=== PATIENT | male | born 1950 | race Caucasian/White ===

== ENCOUNTER 2017-10-10 19:22 | Emergency (ER) | payer MEDICARE, OTHER ==
[2017-10-10] MEDS ORDERED: DOCU-141 PO (21:23)
[2017-10-10] MEDS ORDERED: FINA5TAB11 PO (21:23)
[2017-10-10] MEDS ORDERED: CALC430T PO (21:23)
[2017-10-10] MEDS ORDERED: OMEP20CA10 PO (21:23)
[2017-10-10] MEDS ORDERED: OLAN2.5T3 PO (21:23)
[2017-10-10] MEDS ORDERED: NICO-677 TD (21:23)
[2017-10-10] MEDS ORDERED: OXYB10TA PO (21:23)
[2017-10-10] MEDS ORDERED: CLON0.5T12 PO (21:23)
[2017-10-10] MEDS ORDERED: GABA-532 PO (21:23)
[2017-10-10] MEDS ORDERED: TAMS0.4C34 PO (21:23)
== END 2017-10-10 20:00 | disposition home or self-care (01) ==
LOC: CANPREER → ER 19:22
DX: Z53.20 Procedure and treatment not carried out because of patient's decision for unspecified reasons (principal)

== ENCOUNTER 2017-10-10 20:02 | Inpatient (IN) | payer MEDICARE, OTHER ==
[~2017-10-10] VITALS: Ht 167.6 cm; Wt 49.9 kg
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
[2017-10-10] MEDS ORDERED: DOCU-141 PO (21:23)
[2017-10-10] MEDS ORDERED: CALC430T PO (21:23)
[2017-10-10] MEDS ORDERED: TAMS0.4C34 PO (21:23)
[2017-10-10] MEDS ORDERED: FINA5TAB11 PO (21:23)
[2017-10-10] MEDS ORDERED: OLAN2.5T3 PO (21:23)
[2017-10-10] MEDS ORDERED: OMEP20CA10 PO (21:23)
[2017-10-10] MEDS ORDERED: NICO-677 TD (21:23)
[2017-10-10] MEDS ORDERED: CLON0.5T12 PO (21:23)
[2017-10-10] MEDS ORDERED: OXYB10TA PO (21:23)
[2017-10-10] MEDS ORDERED: GABA-532 PO (21:23)
[2017-10-10] MEDS ORDERED: MAG HYDROX/AL HYDROX/SIMETH 30 ML UDC PO PRN (21:30)
[2017-10-10] MEDS ORDERED: MAGNESIUM HYDROXIDE 30 ML UDC PO PRN (21:30)
[2017-10-10 23:28] VITALS: BP 152/97
[2017-10-10] MEDS: LORAZEPAM 0.5 MG TABLET PO PRN (23:29)
[2017-10-11] MEDS: TEMAZEPAM 7.5 MG CAPSULE PO PRN (01:10)
[2017-10-11] MEDS ORDERED: Z GUARD REMEDY 4 OZ OINT TP PRN (03:30)
[2017-10-11 07:40] LABS: ALBUMIN 3.1 g/dL (3.4-5.0); BILIRUBIN,TOTAL 0.3 mg/dL (0.2-1.0); CALCIUM, SERUM 8.5 mg/dL (8.5-10.1); CREATININE 1.1 mg/dL (0.6-1.3); POTASSIUM 3.5 mmol/L (3.5-5.1); TOTAL PROTEIN, SERUM 7.4 g/dL (6.4-8.2)
[2017-10-11 08:00] VITALS: BP 114/69
[2017-10-11 08:11] LABS: CHOLESTEROL 153 mg/dL (<200); HDL CHOLESTEROL 52 mg/dL (40-60); LDL 83 mg/dL (0-99); TRIGLYCERIDES 118 mg/dL (30-150)
[2017-10-11] MEDS: TAMSULOSIN 0.4 MG CAP.SR.24H PO SCH (08:23)
[2017-10-11] MEDS: FINASTERIDE (5 MG) 5 MG TABLET PO SCH (08:23)
[2017-10-11] MEDS: OXYBUTYNIN CHLORIDE ER 5 MG TAB PO SCH (08:23)
[2017-10-11] MEDS: PANTOPRAZOLE 40 MG TABLET.DR PO SCH (08:24)
[2017-10-11] MEDS: NICOTINE PATCH (21MG) 21 MG PATCH.TD24 TD SCH (08:26)
[2017-10-11] MEDS: LORAZEPAM 0.5 MG TABLET PO PRN ×2 (08:29→14:19)
--- NOTE | 2017-10-11 08:30 | NUR ---
GPS/RN PATIENT IS NOTED TO ANXIOUS AND CRYING INTERMITTENTLY, ADMINISTERED ATIVAN 0.5 MG , WILL CONTINUE TO MONITOR.
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
[2017-10-11] MEDS: CALCIUM CARBONATE 500 MG TAB.CHEW PO SCH ×2 (12:42→16:26)
[2017-10-11] MEDS: CLOTRIMAZOLE/BETAMETASONE DIPROPIONATE 15 GM TUBE TP SCH ×2 (12:43→16:46)
--- NOTE | 2017-10-11 14:22 | NUR ---
GPS/RN PATIENT IS ANXIOUS, RESTLESS AND CRYING INTERMITTENTLY, ADMINISTERED ATIVAN 0.5 MG , WILL CONTINUE TO MONITOR.
[2017-10-11 15:47] VITALS: BP 146/95
[2017-10-11] MEDS: GABAPENTIN 100 MG CAPSULE PO SCH (16:27)
[2017-10-11] MEDS: NEOMY SULF/BACITRAC ZN/POLY 15 GM TUBE TP SCH (16:45)
[2017-10-11 20:55] VITALS: BP 101/84
[2017-10-11] MEDS: OLANZAPINE 2.5 MG TABLET PO SCH (21:27)
[2017-10-11] MEDS: ACETAMINOPHEN 325 MG TABLET PO PRN (21:27)
[2017-10-12 08:00] VITALS: BP 150/78
[2017-10-12] MEDS ORDERED: DOCUSATE SODIUM 100 MG CAPSULE PO SCH (09:00)
[2017-10-12] MEDS: CALCIUM CARBONATE 500 MG TAB.CHEW PO SCH ×2 (09:10→16:26)
[2017-10-12] MEDS: FINASTERIDE (5 MG) 5 MG TABLET PO SCH (09:10)
[2017-10-12] MEDS: NICOTINE PATCH (21MG) 21 MG PATCH.TD24 TD SCH (09:10)
[2017-10-12] MEDS: PANTOPRAZOLE 40 MG TABLET.DR PO SCH (09:11)
[2017-10-12] MEDS: ESCITALOPRAM OXALATE (10 MG) 10 MG TABLET PO SCH (09:11)
[2017-10-12] MEDS: OXYBUTYNIN CHLORIDE ER 5 MG TAB PO SCH (09:11)
[2017-10-12] MEDS: GABAPENTIN 100 MG CAPSULE PO SCH ×2 (09:11→16:26)
[2017-10-12] MEDS: TAMSULOSIN 0.4 MG CAP.SR.24H PO SCH (09:11)
[2017-10-12] MEDS: NEOMY SULF/BACITRAC ZN/POLY 15 GM TUBE TP SCH (09:42)
[2017-10-12] MEDS: CLOTRIMAZOLE/BETAMETASONE DIPROPIONATE 15 GM TUBE TP SCH ×2 (09:43→16:26)
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
[2017-10-12 16:00] VITALS: BP 116/87
--- NOTE | 2017-10-12 19:30 | NUR ---
GPS RN NOTE, RECEIVED PATIENT AWAKE AND IN BED, NO S/S OR COMPLAINTS OF PAIN AT THIS TIME. PATIENT IS DISPLAYING NO S/S OF APPARENT DISTRESS AT THIS TIME. PATIENT BREATHING IS UNLABORED WITH EQUAL RISE AND FALL OF THE CHEST. PATIENT IS ALERT AND ORIENTED X 1-2 ON ROOM AIR WITH A SPO2 OF 96%. PATIENT IS COMPLIANT WITH MEDICATION, ANXIOUS AT TIMES, PARANOID, COOPERATIVE, AND NEEDS REORIENTATION. PATIENT DENIES SUICIDE IDEATIONS AND HOMICIDAL IDEATIONS AT THIS TIME. PATIENT ASSISTED WITH TURNING AND REPOSITIONING Q2HR AND PRN FOR COMFORT AND CIRCULATION. PATIENT HAS NO NEEDS AT THIS TIME. PATIENT EDUCATED ON THE USE OF THE CALL PATRICIA. PATIENT SIDE RAILS ARE UP X 2, BED IS LOCKED AND LOW, AND I WILL CONTINUE TO MONITOR THIS PATIENT Q 15 MIN WITH THE HELP OF STAFF.
[2017-10-12] MEDS: LORAZEPAM 0.5 MG TABLET PO PRN (19:36)
--- NOTE | 2017-10-12 19:36 | NUR ---
GPS RN NOTE, PATIENT HAS A COMPLAINT OF FEELING ANXIOUS AND IS REQUESTING ATIVAN AT THIS TIME. PATIENT VITAL SIGNS ARE STABLE. GAVE ATIVAN 0.5MG PO Q6HR PRN ORDERED. WILL REASSESS FOR ANXIETY AND I WILL CONTINUE TO MONITOR THIS PATIENT.
[2017-10-12 20:17] VITALS: BP 135/84
[2017-10-12] MEDS: OLANZAPINE 2.5 MG TABLET PO SCH (21:41)
[2017-10-12] MEDS: ACETAMINOPHEN 325 MG TABLET PO PRN (22:46)
--- NOTE | 2017-10-12 22:46 | NUR ---
GPS RN NOTE, PATIENT HAS A COMPLAINT OF A HEAD ACHE AT 3 OUT 10 ON THE PAIN SCALE AND IS REQUESTING TYLENOL AT THIS TIME. PATIENT VITAL SIGNS ARE STABLE. GAVE TYLENOL 650MG PO Q6 PRN ORDERED. WILL REASSESS FOR PAIN AND I WILL CONTINUE TO MONITOR THIS PATIENT.
[2017-10-13 08:00] VITALS: BP 107/58
[2017-10-13] MEDS: ESCITALOPRAM OXALATE (10 MG) 10 MG TABLET PO SCH (08:29)
[2017-10-13] MEDS: PANTOPRAZOLE 40 MG TABLET.DR PO SCH (08:29)
[2017-10-13] MEDS: OXYBUTYNIN CHLORIDE ER 5 MG TAB PO SCH (08:29)
[2017-10-13] MEDS: TAMSULOSIN 0.4 MG CAP.SR.24H PO SCH (08:29)
[2017-10-13] MEDS: GABAPENTIN 100 MG CAPSULE PO SCH ×2 (08:29→16:53)
[2017-10-13] MEDS: CALCIUM CARBONATE 500 MG TAB.CHEW PO SCH ×2 (08:29→16:53)
[2017-10-13] MEDS: DOCUSATE SODIUM 250 MG CAPSULE PO SCH ×2 (08:29→09:00)
[2017-10-13] MEDS: NICOTINE PATCH (21MG) 21 MG PATCH.TD24 TD SCH (08:29)
[2017-10-13] MEDS: FINASTERIDE (5 MG) 5 MG TABLET PO SCH (08:29)
[2017-10-13] MEDS: CLOTRIMAZOLE/BETAMETASONE DIPROPIONATE 15 GM TUBE TP SCH ×3 (09:00→16:55)
[2017-10-13] MEDS: NEOMY SULF/BACITRAC ZN/POLY 15 GM TUBE TP SCH ×2 (09:00→09:46)
[2017-10-13] MEDS: LORAZEPAM 0.5 MG TABLET PO PRN (13:05)
--- NOTE | 2017-10-13 13:05 | NUR ---
Pt. is anxious and tearful and requesting for Ativan po prn given as ordered.
[2017-10-13 15:51] VITALS: BP 101/79
[2017-10-13 20:00] VITALS: BP 104/73
[2017-10-13] MEDS: TEMAZEPAM 7.5 MG CAPSULE PO PRN (22:17)
[2017-10-13] MEDS: OLANZAPINE 2.5 MG TABLET PO SCH (22:17)
[2017-10-14 08:19] VITALS: BP 138/86
[2017-10-14] MEDS: CLOTRIMAZOLE/BETAMETASONE DIPROPIONATE 15 GM TUBE TP SCH ×2 (09:00→16:50)
[2017-10-14] MEDS: NEOMY SULF/BACITRAC ZN/POLY 15 GM TUBE TP SCH (09:00)
[2017-10-14] MEDS: ESCITALOPRAM OXALATE (10 MG) 10 MG TABLET PO SCH (09:57)
[2017-10-14] MEDS: FINASTERIDE (5 MG) 5 MG TABLET PO SCH (09:57)
[2017-10-14] MEDS: NICOTINE PATCH (21MG) 21 MG PATCH.TD24 TD SCH (09:58)
[2017-10-14] MEDS: LORAZEPAM 0.5 MG TABLET PO PRN ×2 (09:58→16:53)
[2017-10-14] MEDS: DOCUSATE SODIUM 250 MG CAPSULE PO SCH (09:58)
[2017-10-14] MEDS: OXYBUTYNIN CHLORIDE ER 5 MG TAB PO SCH (09:58)
[2017-10-14] MEDS: PANTOPRAZOLE 40 MG TABLET.DR PO SCH (09:58)
[2017-10-14] MEDS: GABAPENTIN 100 MG CAPSULE PO SCH ×2 (09:58→16:53)
[2017-10-14] MEDS: CALCIUM CARBONATE 500 MG TAB.CHEW PO SCH ×2 (09:58→16:53)
[2017-10-14] MEDS: TAMSULOSIN 0.4 MG CAP.SR.24H PO SCH (09:59)
[2017-10-14 16:35] VITALS: BP 117/72
[2017-10-14 20:00] VITALS: BP 129/64
[2017-10-14] MEDS: OLANZAPINE 2.5 MG TABLET PO SCH (22:00)
[2017-10-14] MEDS: TEMAZEPAM 7.5 MG CAPSULE PO PRN (22:01)
[2017-10-14] MEDS: ACETAMINOPHEN 325 MG TABLET PO PRN (22:57)
[2017-10-15 08:00] VITALS: BP 147/69
[2017-10-15] MEDS: NICOTINE PATCH (21MG) 21 MG PATCH.TD24 TD SCH (08:22)
[2017-10-15] MEDS: OXYBUTYNIN CHLORIDE ER 5 MG TAB PO SCH (08:22)
[2017-10-15] MEDS: FINASTERIDE (5 MG) 5 MG TABLET PO SCH (08:23)
[2017-10-15] MEDS: CALCIUM CARBONATE 500 MG TAB.CHEW PO SCH ×2 (08:23→17:16)
[2017-10-15] MEDS: TAMSULOSIN 0.4 MG CAP.SR.24H PO SCH (08:23)
[2017-10-15] MEDS: DOCUSATE SODIUM 250 MG CAPSULE PO SCH (08:23)
[2017-10-15] MEDS: GABAPENTIN 100 MG CAPSULE PO SCH ×3 (08:23→17:16)
[2017-10-15] MEDS: PANTOPRAZOLE 40 MG TABLET.DR PO SCH (08:24)
[2017-10-15] MEDS ORDERED: ESCITALOPRAM OXALATE (10 MG) 10 MG TABLET PO SCH (09:00)
[2017-10-15] MEDS: CLOTRIMAZOLE/BETAMETASONE DIPROPIONATE 15 GM TUBE TP SCH ×2 (09:00→17:00)
[2017-10-15] MEDS: NEOMY SULF/BACITRAC ZN/POLY 15 GM TUBE TP SCH (09:00)
--- NOTE | 2017-10-15 10:00 | NUR ---
GPS?RN PT REFUSED SKIN CARE. STATES : " LEAVE ME ALONE, YOU F.. A.. HOLE". TOOK AM MEDS FROM 3RD ATTEMPT.
[2017-10-15] MEDS: LORAZEPAM 0.5 MG TABLET PO PRN ×2 (10:48→20:41)
--- NOTE | 2017-10-15 11:30 | NUR ---
GPS/RN DR GUTIERREZ MADE AWARE OF PT RESISTANCE TO CARE.
[2017-10-15 16:00] VITALS: BP 137/78
[2017-10-15] MEDS: OLANZAPINE 2.5 MG TABLET PO SCH (17:15)
[2017-10-15 20:00] VITALS: BP 118/77
[2017-10-15] MEDS: TEMAZEPAM 7.5 MG CAPSULE PO PRN (20:41)
[2017-10-16] MEDS: TEMAZEPAM 7.5 MG CAPSULE PO PRN ×2 (00:03→22:00)
[2017-10-16 08:00] VITALS: BP 110/69
[2017-10-16] MEDS: CALCIUM CARBONATE 500 MG TAB.CHEW PO SCH ×2 (08:41→16:44)
[2017-10-16] MEDS: NICOTINE PATCH (21MG) 21 MG PATCH.TD24 TD SCH (08:41)
[2017-10-16] MEDS: OLANZAPINE 2.5 MG TABLET PO SCH ×3 (08:42→21:15)
[2017-10-16] MEDS: OXYBUTYNIN CHLORIDE ER 5 MG TAB PO SCH (08:42)
[2017-10-16] MEDS: TAMSULOSIN 0.4 MG CAP.SR.24H PO SCH (08:42)
[2017-10-16] MEDS: ESCITALOPRAM OXALATE (10 MG) 10 MG TABLET PO SCH (08:42)
[2017-10-16] MEDS: GABAPENTIN 100 MG CAPSULE PO SCH ×3 (08:42→16:44)
[2017-10-16] MEDS: PANTOPRAZOLE 40 MG TABLET.DR PO SCH (08:42)
[2017-10-16] MEDS: FINASTERIDE (5 MG) 5 MG TABLET PO SCH (08:42)
[2017-10-16] MEDS: DOCUSATE SODIUM 250 MG CAPSULE PO SCH (08:42)
[2017-10-16] MEDS: NEOMY SULF/BACITRAC ZN/POLY 15 GM TUBE TP SCH (08:45)
[2017-10-16] MEDS: CLOTRIMAZOLE/BETAMETASONE DIPROPIONATE 15 GM TUBE TP SCH ×2 (08:45→17:00)
[2017-10-16 16:13] VITALS: BP 105/72
[2017-10-16 20:14] VITALS: BP 132/72
[2017-10-16] MEDS: ACETAMINOPHEN 325 MG TABLET PO PRN (23:32)
[2017-10-17 08:00] VITALS: BP 138/96
[2017-10-17] MEDS: CALCIUM CARBONATE 500 MG TAB.CHEW PO SCH ×2 (08:28→16:23)
[2017-10-17] MEDS: NICOTINE PATCH (21MG) 21 MG PATCH.TD24 TD SCH (08:28)
[2017-10-17] MEDS: GABAPENTIN 100 MG CAPSULE PO SCH ×3 (08:28→16:22)
[2017-10-17] MEDS: TAMSULOSIN 0.4 MG CAP.SR.24H PO SCH (08:28)
[2017-10-17] MEDS: ESCITALOPRAM OXALATE (10 MG) 10 MG TABLET PO SCH (08:29)
[2017-10-17] MEDS: OXYBUTYNIN CHLORIDE ER 5 MG TAB PO SCH (08:29)
[2017-10-17] MEDS: CLOTRIMAZOLE/BETAMETASONE DIPROPIONATE 15 GM TUBE TP SCH ×2 (08:29→16:23)
[2017-10-17] MEDS: PANTOPRAZOLE 40 MG TABLET.DR PO SCH (08:29)
[2017-10-17] MEDS: FINASTERIDE (5 MG) 5 MG TABLET PO SCH (08:29)
[2017-10-17] MEDS: OLANZAPINE 2.5 MG TABLET PO SCH ×3 (08:29→22:17)
[2017-10-17] MEDS: DOCUSATE SODIUM 250 MG CAPSULE PO SCH (08:29)
[2017-10-17] MEDS: NEOMY SULF/BACITRAC ZN/POLY 15 GM TUBE TP SCH (08:29)
[2017-10-17] MEDS: LORAZEPAM 0.5 MG TABLET PO PRN ×2 (11:09→20:11)
[2017-10-17 19:49] VITALS: BP 120/74
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
[2017-10-18] MEDS: TEMAZEPAM 7.5 MG CAPSULE PO PRN (00:24)
[2017-10-18 08:00] VITALS: BP 102/67
[2017-10-18] MEDS: GABAPENTIN 100 MG CAPSULE PO SCH ×3 (08:41→17:02)
[2017-10-18] MEDS: FINASTERIDE (5 MG) 5 MG TABLET PO SCH (08:41)
[2017-10-18] MEDS: TAMSULOSIN 0.4 MG CAP.SR.24H PO SCH (08:41)
[2017-10-18] MEDS: NICOTINE PATCH (21MG) 21 MG PATCH.TD24 TD SCH (08:41)
[2017-10-18] MEDS: OLANZAPINE 2.5 MG TABLET PO SCH ×3 (08:41→21:24)
[2017-10-18] MEDS: CALCIUM CARBONATE 500 MG TAB.CHEW PO SCH ×2 (08:42→17:02)
[2017-10-18] MEDS: CLOTRIMAZOLE/BETAMETASONE DIPROPIONATE 15 GM TUBE TP SCH ×2 (08:42→17:00)
[2017-10-18] MEDS: ESCITALOPRAM OXALATE (10 MG) 10 MG TABLET PO SCH (08:42)
[2017-10-18] MEDS: OXYBUTYNIN CHLORIDE ER 5 MG TAB PO SCH (08:42)
[2017-10-18] MEDS: PANTOPRAZOLE 40 MG TABLET.DR PO SCH (08:42)
[2017-10-18] MEDS: NEOMY SULF/BACITRAC ZN/POLY 15 GM TUBE TP SCH (08:42)
[2017-10-18] MEDS: DOCUSATE SODIUM 250 MG CAPSULE PO SCH (09:00)
--- NOTE | 2017-10-18 10:30 | NUR ---
Per Kentrell, at [facility] [address] [place] [address] ([phone]), they cannot accept the patient at this time due to patient's referral stating pt. has suicidal ideation.
--- NOTE | 2017-10-18 10:39 | NUR ---
Per madalyn Swartz at [facility] [address] [address] ([phone]), They cannot accept the patient at their facility. structural metal worker will follow-up regarding discharge date.
[2017-10-18] MEDS: LORAZEPAM 0.5 MG TABLET PO PRN (11:19)
[2017-10-18 16:00] VITALS: BP 108/69
[2017-10-18 20:12] VITALS: BP 117/80
[2017-10-19] MEDS: TEMAZEPAM 7.5 MG CAPSULE PO PRN (00:22)
[2017-10-19 08:00] VITALS: BP 101/53
[2017-10-19] MEDS: DOCUSATE SODIUM 250 MG CAPSULE PO SCH ×2 (09:00→09:19)
[2017-10-19] MEDS: NEOMY SULF/BACITRAC ZN/POLY 15 GM TUBE TP SCH (09:00)
[2017-10-19] MEDS: CLOTRIMAZOLE/BETAMETASONE DIPROPIONATE 15 GM TUBE TP SCH ×2 (09:00→16:27)
[2017-10-19] MEDS: ESCITALOPRAM OXALATE (10 MG) 10 MG TABLET PO SCH (09:18)
[2017-10-19] MEDS: GABAPENTIN 100 MG CAPSULE PO SCH ×3 (09:18→16:26)
[2017-10-19] MEDS: PANTOPRAZOLE 40 MG TABLET.DR PO SCH (09:18)
[2017-10-19] MEDS: NICOTINE PATCH (21MG) 21 MG PATCH.TD24 TD SCH (09:18)
[2017-10-19] MEDS: OLANZAPINE 2.5 MG TABLET PO SCH ×3 (09:18→21:29)
[2017-10-19] MEDS: TAMSULOSIN 0.4 MG CAP.SR.24H PO SCH (09:19)
[2017-10-19] MEDS: OXYBUTYNIN CHLORIDE ER 5 MG TAB PO SCH (09:19)
[2017-10-19] MEDS: CALCIUM CARBONATE 500 MG TAB.CHEW PO SCH ×2 (09:19→16:26)
[2017-10-19] MEDS: FINASTERIDE (5 MG) 5 MG TABLET PO SCH (09:19)
[2017-10-19 15:58] VITALS: BP 131/70
--- NOTE | 2017-10-19 16:34 | NUR ---
Zia attempted to notify patients mother , of patient's discharge scheduled for tomorrow October 20, 2016. However she was unavailable and zia was unable to leave message. ZIA will attempt again tomorrow.
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
[2017-10-19 20:00] VITALS: BP 132/81
[2017-10-20] MEDS: ACETAMINOPHEN 325 MG TABLET PO PRN (05:44)
--- NOTE | 2017-10-20 05:49 | NUR ---
GPS RN NOTE, PATIENT HAS A COMPLAINT OF A HEAD ACHE AT 3 OUT 10 ON THE PAIN SCALE. PATIENT VITAL SIGNS ARE STABLE. GAVE TYLENOL 650MG PO Q6HR PRN ORDERED. WILL REASSESS FOR PAIN AND I WILL CONTINUE TO MONITOR THIS PATIENT.
[2017-10-20 08:01] VITALS: BP 114/72
[2017-10-20] MEDS: OLANZAPINE 2.5 MG TABLET PO SCH ×2 (08:48→12:31)
[2017-10-20] MEDS: DOCUSATE SODIUM 250 MG CAPSULE PO SCH (08:48)
[2017-10-20] MEDS: ESCITALOPRAM OXALATE (10 MG) 10 MG TABLET PO SCH (08:48)
[2017-10-20] MEDS: PANTOPRAZOLE 40 MG TABLET.DR PO SCH (08:48)
[2017-10-20] MEDS: TAMSULOSIN 0.4 MG CAP.SR.24H PO SCH (08:48)
[2017-10-20] MEDS: NICOTINE PATCH (21MG) 21 MG PATCH.TD24 TD SCH (08:48)
[2017-10-20] MEDS: CALCIUM CARBONATE 500 MG TAB.CHEW PO SCH (08:48)
[2017-10-20] MEDS: OXYBUTYNIN CHLORIDE ER 5 MG TAB PO SCH (08:48)
[2017-10-20] MEDS: GABAPENTIN 100 MG CAPSULE PO SCH ×2 (08:48→12:31)
[2017-10-20] MEDS: FINASTERIDE (5 MG) 5 MG TABLET PO SCH (08:48)
[2017-10-20] MEDS: NEOMY SULF/BACITRAC ZN/POLY 15 GM TUBE TP SCH (08:49)
[2017-10-20] MEDS: CLOTRIMAZOLE/BETAMETASONE DIPROPIONATE 15 GM TUBE TP SCH (08:51)
--- NOTE | 2017-10-20 11:07 | NUR ---
Zia attempted to notify patients mother , of patient's discharge scheduled for today October 20, 2016. However she was unavailable and zia was unable to leave message.
--- NOTE | 2017-10-20 11:08 | NUR ---
Discharge Note: Patient will be discharged to [facility] ([address], [place] [address] . Via med response. Sw attempted to notify patients mother , however she was unavailable and sw unable to leave message. Patient appears calm and cooperative. Patient denies suicidal and homicidal ideations. Patient will follow-up with Assembler Dr. Wheeler ([phone]) [address] psychiatrist [address] Montez , at the facility. Facilitated info to IDT team who are in agreement with discharge arrangement. The multidisciplinary exitcare form was done, printed, signed, and given to the patient.
--- NOTE | 2017-10-20 13:58 | NUR ---
GPS BB SHOT PACKER NOTE: PATIENT DISCHARGE TO [facility] [address] [place] [address]. PATIENT IN STABLE CONDITION NO S/S DISTRESS NOTED, VSS , PATIENT DENIES SUICIDAL AND HOMICIDAL IDEATIONS. DR LAM AND DR SWANSON AWARE WITH CONTINUE MEDICATIONS .EXIT CARE DONE PRINTED, PT REFUSED TO SIGN DISCHARGE PAPERS REFUSED SKIN ASSESSMENT. REPORT GIVEN TO RN IN SNF, ALL BELONGINGS RETURNED TO PATIENT.
== END 2017-10-20 13:40 | DRG 885 ==
LOC: GPS 20:02
PROVIDERS: ADMIT Psychiatry & Neurology Psychiatry; ATTEND Nurse Practitioner Acute Care
DX: F32.3 Major depressive disorder, single episode, severe with psychotic features (principal); E43 Unspecified severe protein-calorie malnutrition; Z68.1 Body mass index [BMI] 19.9 or less, adult; R45.851 Suicidal ideations; F29 Unspecified psychosis not due to a substance or known physiological condition; F41.9 Anxiety disorder, unspecified; F17.210 Nicotine dependence, cigarettes, uncomplicated; G62.9 Polyneuropathy, unspecified; N40.0 Benign prostatic hyperplasia without lower urinary tract symptoms; Z73.6 Limitation of activities due to disability; L98.8 Other specified disorders of the skin and subcutaneous tissue; S81.002A Unspecified open wound, left knee, initial encounter; X58.XXXA Exposure to other specified factors, initial encounter; Y93.9 Activity, unspecified; Y92.009 Unspecified place in unspecified non-institutional (private) residence as the place of occurrence of the external cause
CPT/HCPCS: 36415; 80053-TC; 80061-TC; 87081-TC; A6402